=== PATIENT | male | born 1970 | race Caucasian/White ===

== ENCOUNTER 2017-06-25 21:42 | Emergency (ER) | payer OTHER ==
[2017-06-25 21:47] VITALS: BP 134/70; PULSE 79; TEMP 98.6; BMI 32.7
--- NOTE | 2017-06-25 22:03 | PDOC ---
Attending Attestation - Resident Resident Name: Lopez Owens - ED Attending Attestation I have performed the following: I have examined & evaluated the patient, The case was reviewed & discussed with the resident, I agree w/resident's findings & plan, Exceptions are as noted - HPI HPI: 06/25/17 22:32 46 yo male with left anterior ribcage pain radiating to his left scapula -denies trauma. He awoke Jasbir with asleep on his left arm and has had pain since that time -the pain does go away with tylenol - Physicial Exam PE: 06/25/17 22:34 wnwd 46 yo male with left sided ribcage pain HEAD normocephalic ,nontraumatic neck supple lungs cta b.l ribcage + tenderness benny palpation of left anterior ribcage that extends to left scapula cvs [id number] abd soft,nontender ext no e/e/e neuro axox3,ambulatory - Medical Decision Making 06/26/17 02:18 cxr negative for PTX,effusions or infiltrates IMP musculoskeletal pain
[2017-06-25] MEDS ORDERED: IBUPROFEN 600 MG TABLET (FP) PO ONE ×2 (22:15→22:18)
--- NOTE | 2017-06-25 23:17 | PDOC ---
History of Present Illness - General Chief Complaint: Pain Stated Complaint: PAIN Time Seen by Provider: 06/25/17 22:00 History Source: Patient Exam Limitations: No Limitations - History of Present Illness Initial Comments: 06/25/17 23:09 46 with no pmh presents with left pleuritic chest pain over the left ribs since Monday when he woke up with his laying on his arm and he exerted himself trying to move her. The pain is non-radiating and increased on inspiration as well as when he rotates his trunk and hunches over. Pain also increased upon pressure of the area Not linked to exertion, no SOB, no nausea, vomiting,headaches. No recent travel or pedal edema 06/25/17 23:17 Past History - Past Medical History Allergies/Adverse Reactions: Allergies Allergy/AdvReac Type Severity Reaction Status Date / Time No Known Allergies Allergy Verified 06/25/17 21:45 COPD: No - Suicide/Smoking/Psychosocial Hx Smoking History: Never smoked Review of Systems - Review of Systems Able to Perform ROS?: Yes Constitutional: No: Symptoms Reported HEENTM: No: Symptoms Reported Respiratory: No: Symptoms reported Cardiac (ROS): No: Symptoms Reported ABD/GI: No: Symptoms Reported : No: Symptoms Reported Musculoskeletal: No: Symptoms Reported Integumentary: No: Symptoms Reported Neurological: No: Symptoms reported *Physical Exam - Vital Signs Last Vital Signs Temp Pulse Resp BP Pulse Ox 98.6 F 79 16 134/70 96 06/25/17 21:46 06/25/17 21:46 06/25/17 21:46 06/25/17 21:46 06/25/17 21:46 - Physical Exam General Appearance: Yes: Nourished, Appropriately Dressed. No: Apparent Distress HEENT: positive: EOMI, HARISH, Normal ENT Inspection Neck: positive: Trachea midline. negative: Tender Respiratory/Chest: positive: Lungs Clear, Normal Breath Sounds. negative: Chest Tender Cardiovascular: positive: Regular Rhythm, Regular Rate, S1, S2 Gastrointestinal/Abdominal: positive: Normal Bowel Sounds, Flat, Soft. negative : Tender Musculoskeletal: positive: Normal Inspection. negative: CVA Tenderness Extremity: positive: Normal Capillary Refill, Normal Inspection, Normal Range of Motion. negative: Pedal Edema, Swelling, Calf Tenderness, Erythema ED Treatment Course - RADIOLOGY Radiology Studies Ordered: Category Date Time Status CHEST PA & LAT [RAD] Stat Radiology 06/25/17 22:22 Taken - Medications Given in the ED: ED Medications Discontinued Medications Generic Name Dose Route Start Last Admin Trade Name Paddy PRN Reason Stop Dose Admin Ibuprofen 600 mg 06/25/17 22:15 06/25/17 22:18 Motrin - PO 06/25/17 22:16 600 mg ONCE ONE Administration Medical Decision Making - Medical Decision Making 06/25/17 23:19 46M with inspirational pleuritic chest pain. Positional pain + pleuritic chest pain + tender on palpation : this is likely musculoskeletal/costochondritis Chest xray negative. Marko side U/S negative Patient d/c on motrin, feels better. *DC/Admit/Observation/Transfer Diagnosis at time of Disposition: Costochondritis, acute - Discharge Dispostion Disposition: HOME Admit: No - Referrals - Patient Instructions Printed Discharge Instructions: DI for Costochondritis Additional Instructions: Come back to ED for any new, worsening or concerning symptoms. Follow up with primary care provider. Print Language: BELGIAN - Post Discharge Activity
== END 2017-06-25 23:32 | disposition home or self-care (01) ==
LOC: JER 21:42
DX: M94.0 Chondrocostal junction syndrome [Tietze] (principal)
CPT/HCPCS: 71020-TC; 99282-25

== ENCOUNTER 2019-04-14 07:36 | Emergency (ER) | payer OTHER ==
[2019-04-14 07:52] VITALS: BMI 35.0
--- NOTE | 2019-04-14 08:38 | PDOC ---
History of Present Illness - General Chief Complaint: Rash Stated Complaint: ALLERGIC REACTION Time Seen by Provider: 04/14/19 08:29 - History of Present Illness Initial Comments: 04/14/19 08:32 48 yo M with no significant pmh who p/w rash to bilateral arms, and back. Patient reports 1 week of stable, unremitting, pruitic, non-draining, rash to BL forearm/flexor creases. Not improved with Zyrtec. Works outdoors in heat. Reports similiar history x 7 years ago, aggravated with outdoor heat exposure. Patient denies contact exposure, outdoor exposure, new detergents, emollients, bedding, clothing, or change in diet. Patient denies DOS SANTOS, vision change, palpitations, cough, wheezing, orthopena, PND , leg swelling/pain, N/V, F,C, CP, SOB, urinary complaints, hematuria, BPR, abdominal pain, diarrhea, constipation, lightheadedness, weakness, sensory changes. PMHx: as noted above ROS: as noted SHx: Denies Etoh, IVDA, tobacco use Allergies: NKDA Past History - Past Medical History Allergies/Adverse Reactions: Allergies Allergy/AdvReac Type Severity Reaction Status Date / Time No Known Allergies Allergy Verified 04/14/19 07:41 Home Medications: Ambulatory Orders Hydrocortisone 1% Cream [Hytone 1% Cream -] 1 applic TP DAILY #1 tube 04/14/19 COPD: No - Suicide/Smoking/Psychosocial Hx Smoking History: Never smoked Hx Alcohol Use: No Drug/Substance Use Hx: No Review of Systems - Review of Systems Comments:: 04/14/19 08:33 GENERAL/CONSTITUTIONAL: No fever or chills. No weakness. HEAD, EYES, EARS, NOSE AND THROAT: No change in vision. No ear pain or discharge. No sore throat. CARDIOVASCULAR: No chest pain or shortness of breath RESPIRATORY: No cough, wheezing, or hemoptysis. GASTROINTESTINAL: No nausea, vomiting, diarrhea or constipation. GENITOURINARY: No dysuria, frequency, or change in urination. MUSCULOSKELETAL: No joint or muscle swelling or pain. No neck or back pain. SKIN: + Rash NEUROLOGIC: No headache, vertigo, loss of consciousness, or change in strength/ sensation. ENDOCRINE: No increased thirst. No abnormal weight change HEMATOLOGIC/LYMPHATIC: No anemia, easy bleeding, or history of blood clots. ALLERGIC/IMMUNOLOGIC: No hives or skin allergy. *Physical Exam - Vital Signs Last Vital Signs Temp Pulse Resp BP Pulse Ox 97.8 F 67 16 127/88 99 04/14/19 07:41 04/14/19 07:41 04/14/19 07:41 04/14/19 07:41 04/14/19 07:41 - Physical Exam Comments: 04/14/19 08:33 GENERAL: Awake, alert, and fully oriented, in no acute distress HEAD: No signs of trauma, normocephalic, atraumatic EYES: PERRLA, EOMI, sclera anicteric, conjunctiva clear ENT: Hearing grossly normal, nares patent, oropharynx clear without exudates. Moist mucosa NECK: Normal ROM, supple, no lymphadenopathy, JVD, or masses LUNGS: No distress, speaks full sentences, clear to auscultation bilaterally HEART: Regular rate and rhythm, normal S1 and S2, no murmurs, rubs or gallops, peripheral pulses normal and equal bilaterally. ABDOMEN: Soft, nontender, normoactive bowel sounds. No guarding, no rebound. No masses EXTREMITIES : Normal inspection, Normal range of motion, no edema. No clubbing or cyanosis NEUROLOGICAL: Cranial nerves II through XII grossly intact. Normal speech, normal gait, no focal sensorimotor deficits SKIN: + Bl pustular lesions flexor creases of arm. Absent drainage, warmth, ttp. Warm, Dry, normal turgor, no rashes or lesions noted Medical Decision Making - Medical Decision Making 04/14/19 08:36 48 yo M with no significant pmh who p/w rash to bilateral arms, and back. Vitals wnl, AF, A&Ox3. Physical exam with BL papular lesions flexor crease of forearms. absent palatal or tongue edema, stridor, wheezing. Patient with absent evidence of anaphylaxis, hypotension, GI disturbances, autonomic dysfunction, airway compromise, mucosal edema, stridor, wheezing. Denies DOS SANTOS, vision change, cough, wheezing, N/V, F,C, CP, SOB, urinary complaints, hematuria , BPR, abdominal pain, diarrhea, constipation, lightheadedness, weakness, sensory changes. Patient likely with atopic dermatitis or contact allergen/ hypersensitivity reaction. Will provide oral symptom control, reassess. Ed Course: 04/14/19 08:38 Topical Hydrocortisone Topcial hydrocortisone sent to pharmacy Pt. stable for d/c with return precautions advised to f//u pmd *DC/Admit/Observation/Transfer Diagnosis at time of Disposition: Rash and nonspecific skin eruption - Prescriptions Prescriptions: Hydrocortisone 1% Cream [Hytone 1% Cream -] 1 applic TP DAILY #1 tube - Referrals - Patient Instructions Printed Discharge Instructions: DI for Rash Additional Instructions: Please return to the emergency department with any new or worsening symptoms or concerns. Please follow up with your primary care physician within 72 hours. Please take Prednisone daily. - Post Discharge Activity
[2019-04-14] MEDS ORDERED: predniSONE 20 MG TABLET (UD) PO ONE ×2 (08:57→10:03)
[2019-04-14] MEDS ORDERED: diphenhydrAMINE HCL 12.5 MG/5 ML UNIT-DOSE CUPS PO ONE (09:01)
[2019-04-14] MEDS ORDERED: HYDROCORTISONE 1% TOPICAL OINT 30 GM TUBE TP ONE (09:32)
[2019-04-14] MEDS ORDERED: predniSONE 20 MG TABLET (UD) ONE (09:49)
[2019-04-14] MEDS ORDERED: diphenhydrAMINE HCL 25 MG CAPSULE (FP) PO ONE (09:50)
--- NOTE | 2019-04-14 09:58 | PDOC ---
Documentation entered by Jaime Lennon SCRIBE, acting as scribe for Mk Rivas MD. Mk Rivas MD: This documentation has been prepared by the Citlalli arvizu Nirvannie, SCRIBE, under my direction and personally reviewed by me in its entirety. I confirm that the documentation accurately reflects all work, treatment, procedures, and medical decision making performed by me. Attending Attestation - Resident Resident Name: Carl Carterson - ED Attending Attestation I have performed the following: I have examined & evaluated the patient, The case was reviewed & discussed with the resident, I agree w/resident's findings & plan - HPI HPI: 04/14/19 09:27 48y M no pmhx presents rash to b/l flexor surfaces of his forearm and is itchy. Notes itching elswhere on his body including his lower leg and thigh but no rashes. denies any fevers,/chills, n/v, new exposures, known allergies. pt using xyrtech that helps his itching on his body but not on his arms. exam: mild macularpapular rash on his flexor surfaces of b/l arms without significant erythema, induration, no drainage, +early lichenification and some excoriations present. no rash on legs or torso. dx - non specific skin eruption, possible heat rash with excoriations will give benadryl for itching topical hydrocoritisone will dc with pmd fu - Physicial Exam PE: 04/14/19 09:39 see above - Medical Decision Making 04/14/19 09:39 see above
[2019-04-14 10:04] VITALS: BP 131/86; PULSE 66; TEMP 97.9
== END 2019-04-14 10:05 | disposition home or self-care (01) ==
LOC: JER 07:36
DX: R21 Rash and other nonspecific skin eruption (principal)
CPT/HCPCS: 99281-25

== ENCOUNTER 2022-01-12 09:18 | Emergency (ER) | payer OTHER ==
[2022-01-12 09:30] VITALS: BP 142/92; PULSE 69; TEMP 97.2; BMI 32.1
[2022-01-12] MEDS ORDERED: KETOROLAC TROMETHAMINE 30 MG/1 ML VIAL IVPB ONE (11:01)
[2022-01-12] MEDS ORDERED: ONDANSETRON 4 MG/2 ML VIAL IVPUSH ONE (11:01)
[2022-01-12] MEDS ORDERED: SODIUM CHLORIDE 0.9% 500 ML INFUS.BAG IV ONE (11:01)
[2022-01-12 12:41] LABS: BASO % 0.5 % (0-2.0); EOS % 0.2 % (0-4.5); HEMATOCRIT 44.9 % (35.4-49); HEMOGLOBIN 15.1 GM/dL (11.7-16.9); LYMPH % 16.8 % (8-40); MCH 28.4 pg (25.7-33.7); MCHC 33.5 g/dl (32.0-35.9); MEAN CELL VOLUME 84.6 fl (80-96); MEAN PLT VOLUME 8.4 fl (7.5-11.1); MONO % 9.1 % (3.8-10.2); NEUT % 73.4 % (42.8-82.8); PLATELET COUNT 279 10^3/uL (134-434); RBC 5.31 M/mm3 (4.00-5.60); RDW 13.6 % (11.9-15.9); WHITE BLOOD COUNT 10.4 K/mm3 (4.0-10.0)
[2022-01-12 13:02] LABS: EPI CELLS 3 /uL (0-25.1); HYALINE CASTS 0 /uL (0-3.1); PH,URINE 6.5 (5.0-8.0); URINE APPEARANCE CLEAR; URINE BACTERIA 1 /uL (0-1359); URINE BILIRUBIN NEGATIVE (NEGATIVE); URINE COLOR YELLOW; URINE GLUCOSE (UA) NEGATIVE (NEGATIVE); URINE KETONE NEGATIVE (NEGATIVE); URINE LEUK ESTERASE NEGATIVE (NEGATIVE); URINE NITRITE NEGATIVE (NEGATIVE); URINE PROTEIN NEGATIVE (NEGATIVE); URINE RBC 52 /uL (0-23.9); URINE UROBILINOGEN 0.2 mg/dL (0.2-1.0); URINE WBC 6 /uL (0-25.8)
[2022-01-12 13:04] LABS: CALCIUM 8.7 mg/dL (8.5-10.1)
[2022-01-12 13:05] LABS: ALBUMIN 3.7 g/dl (3.4-5.0); BLOOD UREA NITROGEN 16.1 mg/dL (7-18)
[2022-01-12 13:08] LABS: CREATININE 1.3 mg/dL (0.55-1.3)
[2022-01-12 13:09] LABS: TOT PROT 7.4 g/dl (6.4-8.2)
[2022-01-12 13:10] LABS: BILIRUBIN,TOTAL 0.6 mg/dL (0.2-1)
== END 2022-01-12 14:15 | disposition home or self-care (01) ==
LOC: JER 09:18
PROC: 3E0333Z Introduction of Anti-inflammatory into Peripheral Vein, Percutaneous Approach (ICD-10-PCS; principal; 2022-01-12)
PROC: 3E033GC Introduction of Other Therapeutic Substance into Peripheral Vein, Percutaneous Approach (ICD-10-PCS; 2022-01-12)
DX: R10.9 Unspecified abdominal pain (principal)
CPT/HCPCS: 36415; 80053; 81003; 85025; 87086; 99284-25

== ENCOUNTER 2022-01-16 14:35 | Emergency (ER) | payer OTHER ==
[2022-01-16 14:42] VITALS: BP 132/86; PULSE 70; TEMP 98.4; BMI 31.4
[2022-01-16] MEDS ORDERED: KETOROLAC TROMETHAMINE 30 MG/1 ML VIAL IM ONE (16:19)
[2022-01-16] MEDS ORDERED: KETOROLAC TROMETHAMINE 30 MG/1 ML VIAL ONE (17:14)
== END 2022-01-16 20:18 | disposition home or self-care (01) ==
LOC: JERFT 14:35 → JER 14:35 → JERFT 20:18
PROC: 3E023GC Introduction of Other Therapeutic Substance into Muscle, Percutaneous Approach (ICD-10-PCS; principal; 2022-01-16)
DX: N20.0 Calculus of kidney (principal)
CPT/HCPCS: 99284-25

== ENCOUNTER 2022-03-22 22:10 | Emergency (ER) | payer OTHER ==
[2022-03-22 22:27] VITALS: BP 149/95; PULSE 80; RESP 18; TEMP 97.1; BMI 32.3
== END 2022-03-22 23:20 | disposition home or self-care (01) ==
LOC: JER 22:10
DX: H60.331 Swimmer's ear, right ear (principal)
CPT/HCPCS: 99281-25